=== PATIENT | female | born 1995 | race Caucasian/White ===

== ENCOUNTER 2017-06-26 00:20 | Emergency (ER) | payer SELFPAY ==
[2017-06-26 00:25] VITALS: BP 119/66
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
--- NOTE | 2017-06-26 10:13 | RAD ---
Indication: Left shoulder pain. 3 views of the left shoulder demonstrates glenohumeral joint to be unremarkable. Lucency is noted in the mid clavicle however no definite cortical disruption is noted. This may be artifactual. Clinical correlation is suggested. IMPRESSION: Cortical lucency in the mid clavicle without evidence of cortical disruption. This may be artifactual and clinical correlation is suggested.
== END 2017-06-26 01:05 | disposition home or self-care (01) ==
LOC: ED 00:20
DX: M25.512 Pain in left shoulder (principal); V49.9XXA Car occupant (driver) (passenger) injured in unspecified traffic accident, initial encounter; Y92.9 Unspecified place or not applicable
CPT/HCPCS: 99282